=== PATIENT | female | born 1975 | race Caucasian/White ===

== ENCOUNTER 2017-04-02 10:39 | Emergency (ER) | payer OTHER ==
[~2017-04-02] VITALS: Ht 172.7 cm; Wt 59.0 kg
[~2017-04-02 10:39] MED LIST: ACETAMINOPHEN-1 EAC1 ORAL; AFRIN NASAL SPR30 ML NASAL; AMOXICILLIN875 MG PO; AUGMENTIN 875-1 EAC1 ORAL; AZITHROMYCIN250 MG ORAL; BENADRYL25 MG ORAL; CHERATUSSIN AC118 ML PO; CLARITIN10 M2 ORAL; CORTISPORIN EAR10 ML OTIC; GUAIFENESIN400 MG PO; IBUPROFEN600 MG ORAL; NASONEX17 GM NASAL; NKM; PREDNISONE20 MG ORAL; ZITHROMAX250 MG ORAL
[2017-04-02 10:46] VITALS: BP 105/72
[2017-04-02] MEDS ORDERED: IBUPROFEN600 MG ORAL (11:36)
[2017-04-02] MEDS ORDERED: REGLAN10 MG ORAL (11:36)
[2017-04-02] MEDS ORDERED: TYLENOL325 MG ORAL (11:36)
[2017-04-02 12:05] VITALS: BP 126/74
--- NOTE | 2017-04-05 14:19 | Emergency Room Report ---
History of Present Illness General Chief Complaint: Headache Source: Patient Present Illness HPI [id number] [employer] walk-in with 5 days right earache and sharp pain to right side of head Denies fever/chills, drainage from ear, blurry/change of vision, headache, neck pain/stiffness Thinks she has ear infection Taking OTC meds as needed Allergies: Coded Allergies: AMOXICILLIN (Verified Allergy, Unknown, 04/23/15) CEPHALEXIN (Verified Allergy, Unknown, 04/23/15) Patient History Past Medical History: none Past Surgical History: none Pertinent Family History: none Social History: Denies: smoking, alcohol use, drug use Last Menstrual Period: 02/15/17 Now: No Immunizations: UTD Reviewed Nursing Documentation: PMH: Agreed, PSxH: Agreed Nursing Documentation-PMH Past Medical History: No Stated History Review of Systems All Other Systems: negative except mentioned in HPI Physical Exam Vital Signs Date Time Temp Pulse Resp B/P (MAP) Pulse Ox O2 Delivery O2 Flow Rate FiO2 04/02/17 10:46 98.1 54 16 105/72 100 Room Air Sp02 EP Interpretation: reviewed, normal General Appearance: normal inspection, well appearing, no apparent distress, alert, GCS 15, non-toxic Head: normocephalic, atraumatic Eyes: bilateral eye PERRL, bilateral eye EOMI ENT: normal ENT inspection, hearing grossly normal, normal pharynx, no angioedema, normal voice, TMs + canals normal, uvula midline Neck: normal inspection, full range of motion, supple, no bony tend Respiratory: normal inspection, lungs clear, normal breath sounds, no respiratory distress, no retraction, no wheezing Cardiovascular #1: regular rate, rhythm, no edema Gastrointestinal: normal inspection, normal bowel sounds, non tender, soft, no guarding, no hernia Genitourinary: no CVA tenderness Musculoskeletal: normal inspection, back normal, normal range of motion, James' s Sign negative Neurologic: normal inspection, alert, oriented x3, responsive, assistant in nursing III-XII nml as tested, motor strength/tone normal, speech normal Psychiatric: normal inspection, judgement/insight normal, mood/affect normal Skin: normal inspection, normal color, no rash Lymphatic: normal inspection Medical Decision Making Diagnostic Impression: Primary Impression: Headache Qualified Codes: G44.209 - Tension-type headache, unspecified, not intractable ER Course VSS. Afebrile No sign of infection ?atypical migraine Was tx with reglan/tylenol in ED with improvement Rx for same Return for worsening symptoms PMD followup as nedestan DC hme Last Vital Signs Date Time Temp Pulse Resp B/P (MAP) Pulse Ox O2 Delivery O2 Flow Rate FiO2 04/02/17 12:05 72 16 126/74 99 Room Air 04/02/17 10:46 98.1 Status: improved Disposition: HOME, SELF-CARE Condition: Improved Scripts Metoclopramide Hcl* (REGLAN*) 10 Mg Tablet 10 MG ORAL THREE TIMES A DAY for 7 Days, #30 TAB Prov: SIMI CHAVEZ M.D. 04/02/17 Acetaminophen (Tylenol) 325 Mg Tablet 650 MG ORAL Q6H Y for Prn Pain/Headache/Temp > 101 for 7 Days, #30 TAB 0 Refills Prov: SIMI CHAVEZ M.D. 04/02/17 Ibuprofen* (MOTRIN*) 600 Mg Tablet 600 MG ORAL THREE TIMES A DAY for headache for 7 Days, #30 TAB 0 Refills Prov: SIMI CHAVEZ M.D. 04/02/17 Referrals: NON PHYSICIAN (PCP) Patient Instructions: Tension Headache, Migraine Headache Additional Instructions: - Take ibuprofen 600mg every 8 hours with food - You can alternate that with reglan/tylenol together SIMI CHAVEZ M.D. Apr 05, 2017 14:19
== END 2017-04-02 12:05 | disposition home or self-care (01) ==
LOC: EMR 11:40
DX: G44.209 Tension-type headache, unspecified, not intractable (principal); H92.01 Otalgia, right ear; Z88.8 Allergy status to other drugs, medicaments and biological substances
CPT/HCPCS: 99283

== ENCOUNTER 2017-04-30 09:34 | Emergency (ER) | payer OTHER ==
[~2017-04-30] VITALS: Ht 172.7 cm; Wt 59.0 kg
[~2017-04-30 09:34] MED LIST changes: +REGLAN10 MG ORAL; +TYLENOL325 MG ORAL
--- NOTE | 2017-04-30 09:57 | Emergency Room Report ---
History of Present Illness General Chief Complaint: Upper Respiratory Illness Source: Patient Present Illness HPI Patient with 2 weeks of R ear discomfort with worsening for 3 days. Daughter with recent OM treated with azithromycin. She has some decreased hearing on R and also feels more fullness when ear is dependent. Some nasal congestion and R throat discomfort. Had productive cough last week and still coughing but phlegm is now clear. Denies chest pain. No NVD. She took some meds without help. Sinuses have been congested. Feverish, but not documented. Also recently treated for OE with drops. Has had several R ear infections in this past year. Not . No headache. Allergies: Coded Allergies: AMOXICILLIN (Verified Allergy, Unknown, 04/23/15) CEPHALEXIN (Verified Allergy, Unknown, 04/23/15) Patient History Past Medical History: see triage record Social History: Denies: smoking, alcohol use, drug use Social History Narrative children in school Last Menstrual Period: 04/18/17 Reviewed Nursing Documentation: PMH: Agreed, PSxH: Agreed Nursing Documentation-PMH Past Medical History: No Stated History Review of Systems All Other Systems: negative except mentioned in HPI Physical Exam Vital Signs Date Time Temp Pulse Resp B/P (MAP) Pulse Ox O2 Delivery O2 Flow Rate FiO2 04/30/17 09:35 97.9 67 16 111/77 97 Room Air Sp02 EP Interpretation: reviewed, normal General Appearance: well appearing, no apparent distress, alert, GCS 15 Head: normocephalic, atraumatic Eyes: bilateral eye normal inspection, bilateral eye PERRL ENT: normal voice, moist mucus membranes, pharyngeal erythema - minimal R, other - R TM with serous fluid, no buldge or erythema Neck: full range of motion, supple Respiratory: chest non-tender, lungs clear, normal breath sounds, no respiratory distress, speaking full sentences Cardiovascular #1: regular rate, rhythm Cardiovascular #2: 2+ radial (R) Gastrointestinal: normal inspection Musculoskeletal: back normal, digits/nails normal, gait/station normal, normal range of motion, no calf tenderness Neurologic: alert, oriented x3, normal gait, grossly normal Psychiatric: mood/affect normal Skin: no rash Medical Decision Making Diagnostic Impression: Primary Impression: Serous otitis media Qualified Codes: H65.01 - Acute serous otitis media, right ear Additional Impression: Sinusitis Qualified Codes: J01.01 - Acute recurrent maxillary sinusitis ER Course Patient presents with R ear pain and URI sy for 2 1/2 weeks. She has taken some OTC meds without help. She has a complex history of recurrent R ear problems including OE. Currently exam is more c/w serous otitis and sinusitis. Concern for infectious etiology of OM. Will treat with antibiotics and antihistamines. Discussed with patient benefit of antihistamines or decongestants (as she is worried about drowsiness with meds). Also discussed need to follow up with ENT. Patient stable for outpatient observation and treatment. Last Vital Signs Date Time Temp Pulse Resp B/P (MAP) Pulse Ox O2 Delivery O2 Flow Rate FiO2 04/30/17 10:30 97.9 75 17 111/77 97 Room Air Status: improved Disposition: HOME, SELF-CARE Condition: Improved Scripts Chlorpheniramine Maleate (Chlorpheniramine Maleate) 4 Mg Tablet 4 MG PO Q6HR Y for ongestion or ear pressure, #16 TAB Prov: Milton Acosta M.D. 04/30/17 Azithromycin* (ZITHROMAX*) 250 Mg Tablet 250 MG ORAL DAILY, #4 TAB Prov: Milton Acosta M.D. 04/30/17 Referrals: NOT CHOSEN LUIS MANUEL/,REFERRING (PCP) Milton Acosta M.D. Apr 30, 2017 09:57
[2017-04-30] MEDS ORDERED: Azithromycin 250mg tab ORAL ONE (10:00)
[2017-04-30] MEDS ORDERED: AZITHROMYCIN250 MG ORAL (10:14)
[2017-04-30] MEDS ORDERED: CHLORPHENIRAMINE4 M1 PO (10:14)
[2017-04-30 10:30] VITALS: BP 111/77
== END 2017-04-30 10:45 | disposition home or self-care (01) ==
LOC: EMR 09:51
DX: H65.91 Unspecified nonsuppurative otitis media, right ear (principal); J32.9 Chronic sinusitis, unspecified; Z88.0 Allergy status to penicillin
CPT/HCPCS: 99284; Q0144

== ENCOUNTER 2018-01-06 11:09 | Emergency (ER) | payer MEDICAID, OTHER ==
[~2018-01-06] VITALS: Ht 172.7 cm; Wt 54.4 kg
[~2018-01-06 11:09] MED LIST changes: +CHLORPHENIRAMINE4 M1 PO
[2018-01-06] MEDS ORDERED: TYLENOL EXTRA500 MG ORAL (12:08)
[2018-01-06] MEDS ORDERED: ZITHROMAX250 MG ORAL (12:08)
[2018-01-06] MEDS ORDERED: PROMETHAZINE-C118 M1 ORAL (12:08)
--- NOTE | 2018-01-06 12:10 | Emergency Room Report ---
History of Present Illness General Chief Complaint: Upper Respiratory Illness Source: Patient Present Illness HPI 42-year-old female patient presents to ER complaining of cough for the past 2 days. Reports dry cough is worse at night. Denies history of asthma or cardiac disease. Denies hemoptysis. Also complains of congestion and sore throat during this time. Reports able to eat and drink. Denies difficulty breathing. Reports subjective fever, patient afebrile at presentation. Denies chest pain, shortness of breath, abdominal pain, dysuria, hematuria, other acute symptoms. Allergies: Coded Allergies: AMOXICILLIN (Verified Allergy, Unknown, 04/23/15) CEPHALEXIN (Verified Allergy, Unknown, 04/23/15) Patient History Past Medical History: see triage record Last Menstrual Period: december 16 Now: No Reviewed Nursing Documentation: PMH: Agreed; PSxH: Agreed Nursing Documentation-PMH Past Medical History: No Stated History Review of Systems All Other Systems: negative except mentioned in HPI Physical Exam Vital Signs Date Time Temp Pulse Resp B/P (MAP) Pulse Ox O2 Delivery O2 Flow Rate FiO2 01/06/18 11:39 98.9 66 18 98/67 98 Room Air 99.0 Sp02 EP Interpretation: reviewed, normal General Appearance: well appearing, no apparent distress, alert, GCS 15, non- toxic Head: normocephalic, atraumatic Eyes: bilateral eye normal inspection, bilateral eye PERRL ENT: hearing grossly normal, normal pharynx, no angioedema, normal voice, TMs + canals normal, uvula midline, moist mucus membranes, nasal congestion Neck: full range of motion, no bony tend Respiratory: lungs clear, normal breath sounds, no rhonchi, no respiratory distress, no accessory muscle use, no wheezing, speaking full sentences Cardiovascular #1: regular rate, rhythm, no edema Musculoskeletal: back normal, digits/nails normal, gait/station normal, normal range of motion, non-tender Neurologic: alert, oriented x3, responsive, motor strength/tone normal, sensory intact Psychiatric: mood/affect normal Skin: no rash Lymphatic: no adenopathy Medical Decision Making PA Attestation Dr. Zee is my supervising Physician whom patient management has been discussed with. Diagnostic Impression: Primary Impression: Upper respiratory infection ER Course Pt presents to ED c/o cough. DDX considered but are not limited to influenza, viral URI, pneumonia, strep throat, rhinitis, sinusitis, otitis media. Low suspicion for pneumonia, patient afebrile, lungs clear to auscultation, will not order CXR at this time. VITAL SIGNS are WNL, patient is afebrile. Patient blood pressure mildly decreased, will continue to monitor. ER COURSE: Lungs clear to auscultation, no wheezes, rhonci or rales. Likely viral etiology of symptoms. Symptomatic treatment. Followup with PCP for further treatment and/or referral as needed. Patient requesting abx. Informed patient likely viral etiology of symptoms, abx will not treat likely viral infection. Patient reports understanding and repeated request for abx. Patient provided with abx because of hx of similar symptoms progressing to necessitate abx therapy in the past and inability to be seen by PCP at present time in physicians office. Instructed patient to begin taking abx for new or worsening of symptoms as discussed, contact PCP prior to taking abx to confirm beginning abx treatment. Blood pressure WNL prior to discharge. DISCHARGE: -Rx given for Azithromycin -Rx given for Tylenol/Acetaminophen -Rx given for Promethazine codeine syrup for cough sx. CURES reviewed. SE drowsiness, do not take prior to drinking, driving, or operating heavy machinery. At this time pt is stable for d/c to home. Patient is resting comfortably, in no acute distress, nontoxic appearing. Patient to take medications as instructed Will provide with patient care instructions and any necessary prescriptions. Care plan and follow-up instructions provided. Patient instructed to follow-up with primary care provider in 3 - 5 days. Patient questions asked and answered. Patient reports understanding and agreement to treatment plan. ER precautions given. Patient instructed to return to ER immediately for any new or worsening of symptoms including but not limited to increasing SOB, persistent fever, intractable vomiting. - Please note that this Emergency Department Report was dictated using [employer] Systemsliquid loader technology software, occasionally this can lead to erroneous entry secondary to interpretation by the dictation equipment. Last Vital Signs Date Time Temp Pulse Resp B/P (MAP) Pulse Ox O2 Delivery O2 Flow Rate FiO2 01/06/18 11:39 98.9 66 18 98/67 98 Room Air 99.0 Disposition: HOME, SELF-CARE Condition: Stable Scripts Azithromycin* (ZITHROMAX*) 250 Mg Tablet 250 MG ORAL DAILY, #6 TAB 0 Refills Take two tables once daily for 1 day, then one tablet once daily for 4 days. Prov: Antonio Keenan 01/06/18 Acetaminophen* (TYLENOL EXTRA STRENGTH*) 500 Mg Tablet 500 MG ORAL Q8H PRN for Prn Headache/Temp > 101, #30 TAB 0 Refills Prov: Antonio Keenan 01/06/18 Codeine/Promethazine Hcl* (PROMETHAZINE-CODEINE SYRUP*) 118 Ml Syrup 5 ML ORAL Q6H PRN for For Cough, #118 ML 0 Refills Prov: Antonio Keenan 01/06/18 Patient Instructions: Upper Respiratory Infection, Adult Additional Instructions: Followup with primary care provider in 3 -5 days to discuss further treatment and referral. Take medications as directed. Take antibiotics if symptoms worsen as discussed. Discuss use of antibiotics with primary care provider. Cough medication may cause drowsiness, do not take prior to drinking machinery. Patient questions asked and answered. ER precautions given, patient instructed to return to ER immediately for any new or worsening of symptoms. Antonio Keenan Jan 06, 2018 12:10
[2018-01-06 12:19] VITALS: BP 105/70
[2018-01-06 12:20] VITALS: BP 105/70
== END 2018-01-06 12:20 | disposition home or self-care (01) ==
LOC: EMR 12:12
DX: J06.9 Acute upper respiratory infection, unspecified (principal); Z88.1 Allergy status to other antibiotic agents
CPT/HCPCS: 99284

== ENCOUNTER 2018-03-02 11:34 | Emergency (ER) | payer OTHER ==
[~2018-03-02] VITALS: Ht 172.7 cm; Wt 54.4 kg
[~2018-03-02 11:34] MED LIST changes: +PROMETHAZINE-C118 M1 ORAL; +TYLENOL EXTRA500 MG ORAL
[2018-03-02 11:45] VITALS: BP 98/69
--- NOTE | 2018-03-02 12:38 | Emergency Room Report ---
History of Present Illness General Chief Complaint: Sore Throat Source: Patient Present Illness HPI patient is a 43-year-old female with no significant past medical history complaining of 2 days of sore throat, fevers/chills, and right ear pain. She denies cough, SOB, rhinorrhea. Patient is rating her throat pain 5 out of 10, reporting she has history of recurrence strength and ear infection. Denies abdominal pain, nausea, vomiting, diarrhea. Patient has been taking ibuprofen with minimal relief Allergies: Coded Allergies: AMOXICILLIN (Verified Allergy, Unknown, 04/23/15) CEPHALEXIN (Verified Allergy, Unknown, 04/23/15) Patient History Past Medical History: see triage record Past Surgical History: none Pertinent Family History: none Last Menstrual Period: 01/31/18 Now: No : 3 Para: 1 Immunizations: UTD Reviewed Nursing Documentation: PMH: Agreed; PSxH: Agreed Nursing Documentation-PMH Past Medical History: No Stated History Review of Systems All Other Systems: negative except mentioned in HPI Physical Exam Vital Signs Date Time Temp Pulse Resp B/P (MAP) Pulse Ox O2 Delivery O2 Flow Rate FiO2 03/02/18 11:42 99.3 71 18 98/69 99 Room Air 99.3 Sp02 EP Interpretation: reviewed, normal General Appearance: normal inspection, well appearing Eyes: bilateral eye normal inspection, bilateral eye PERRL ENT: hearing grossly normal, no angioedema, normal voice, uvula midline, pharyngeal erythema, other - erythema of the right external ear canal, tragus tender tender to palpation Neck: normal inspection, full range of motion, supple Respiratory: normal inspection, chest non-tender, lungs clear, normal breath sounds, no rhonchi, no respiratory distress, no retraction, no accessory muscle use, no wheezing Cardiovascular #1: normal inspection, normal peripheral pulses, regular rate, rhythm, no edema, no gallop Gastrointestinal: normal inspection, soft Rectal: deferred Genitourinary: deferred Musculoskeletal: normal inspection, back normal Neurologic: normal inspection, alert Psychiatric: normal inspection Skin: normal inspection, no rash Lymphatic: normal inspection, no adenopathy Medical Decision Making PA Attestation on diagnosis, treatment plans were reviewed and discussed by my supervising physician Dr. vieyra Diagnostic Impression: Primary Impression: Otitis externa Additional Impression: URI (upper respiratory infection) ER Course patient is a 43-year-old female with no significant past medical history complaining of 2 days of sore throat, fevers/chills, and right ear pain. She denies cough, SOB, rhinorrhea. Patient is rating her throat pain 5 out of 10, reporting she has history of recurrence strength and ear infection. Denies abdominal pain, nausea, vomiting, diarrhea. Patient has been taking ibuprofen with minimal relief Ddx considered but are not limited to strep pharyngitis, otitis externa, otitis media, URI, allergic rhinitis Vital signs: are WNL, pt. is afebrile H&PE are most consistent withURI and otitis externa ORDERS: azithromycin, ofloxacin 0.3% otic ED INTERVENTIONS: None required at this time. DISCHARGE: At this time pt. is stable for d/c to home. Will provide printed patient care instructions, and any necessary prescriptions. Care plan and follow up instructions have been discussed with the patient prior to discharge. Last Vital Signs Date Time Temp Pulse Resp B/P (MAP) Pulse Ox O2 Delivery O2 Flow Rate FiO2 03/02/18 11:45 99.3 71 18 98/69 99 Room Air 99.3 Disposition: HOME, SELF-CARE Condition: Stable Scripts Ofloxacin (OFLOXACIN) 5 Ml Drops 5 ML OT EVERY 12 HOURS for 7 Days, #70 ML Prov: Johnny Hay 03/02/18 Azithromycin* (ZITHROMAX*) 250 Mg Tablet 250 MG ORAL DAILY for 5 Days, #6 TAB 0 Refills Take two tables once daily for 1 day, then one tablet once daily for 4 days. Prov: Johnny Hay 03/02/18 Referrals: NOT CHOSEN [facility]/,REFERRING (PCP) Patient Instructions: Otitis Externa, Sore Throat Additional Instructions: follow up with pcp if symptoms worsen. if fever/chills, return to ED Johnny Hay Mar 02, 2018 12:38
[2018-03-02] MEDS ORDERED: OFLOXACIN5 ML OT (12:41)
[2018-03-02] MEDS ORDERED: ZITHROMAX250 MG ORAL (12:41)
[2018-03-02 12:49] VITALS: BP 101/77
== END 2018-03-02 12:45 | disposition home or self-care (01) ==
LOC: EMR 12:24
DX: H60.91 Unspecified otitis externa, right ear (principal); J06.9 Acute upper respiratory infection, unspecified; Z88.1 Allergy status to other antibiotic agents
CPT/HCPCS: 99283

== ENCOUNTER 2018-04-25 16:42 | Emergency (ER) | payer OTHER ==
[~2018-04-25] VITALS: Ht 172.7 cm; Wt 54.4 kg
[~2018-04-25 16:42] MED LIST changes: +OFLOXACIN5 ML OT
[2018-04-25 16:56] VITALS: BP 109/74
--- NOTE | 2018-04-25 17:28 | Emergency Room Report ---
History of Present Illness General Chief Complaint: Upper Respiratory Illness Source: Patient Present Illness Allergies: Coded Allergies: AMOXICILLIN (Verified Allergy, Unknown, 04/23/15) CEPHALEXIN (Verified Allergy, Unknown, 04/23/15) Patient History Last Menstrual Period: 04/23/18 Now: No Nursing Documentation-[facility] Past Medical History: No Stated History Physical Exam Vital Signs Date Time Temp Pulse Resp B/P (MAP) Pulse Ox O2 Delivery O2 Flow Rate FiO2 04/25/18 16:47 98.7 66 21 109/74 99 Room Air 98.8 Medical Decision Making PA Attestation Dr. Zee is my supervising Physician whom patient management has been discussed with. Diagnostic Impression: Primary Impression: Post-nasal drainage Additional Impressions: Sore throat Ear pain, right Last Vital Signs Date Time Temp Pulse Resp B/P (MAP) Pulse Ox O2 Delivery O2 Flow Rate FiO2 04/25/18 16:56 98.8 66 21 109/74 99 Room Air 98.8 Disposition: HOME, SELF-CARE Condition: Stable Patient Instructions: Medical Screening Exam, Sore Throat, [id number] Additional Instructions: Take medications as directed. Follow up with a Primary Care Provider in 3-5 days, even if your symptoms have resolved. --Please review list of free/ reduced cost primary care clinics, if you do not already have a primary care provider. Return sooner to ED if new symptoms occur, or current symptoms become worse. - Please note that this Emergency Department Report was dictated using [employer] electrical technician technology software, occasionally this can lead to erroneous entry secondary to interpretation by the dictation equipment. Edyta Long Apr 25, 2018 17:28
[2018-04-25] MEDS ORDERED: ZYRTEC-D TABLE1 EACH ORAL (17:39)
[2018-04-25] MEDS ORDERED: TYLENOL EXTRA500 MG ORAL (17:39)
[2018-04-25 17:45] VITALS: BP 109/74
== END 2018-04-25 17:45 | disposition home or self-care (01) ==
LOC: EMR 17:36
DX: R09.82 Postnasal drip (principal); R07.0 Pain in throat; H92.01 Otalgia, right ear
CPT/HCPCS: 99282